=== PATIENT | male | born 1985 ===

== ENCOUNTER 2023-08-08 18:45 | Emergency (ER) | payer BC ==
[2023-08-08 20:28] LABS: BASOPHILS PERCENT AUTO 0.3 % (0.0-1.5); EOSINOPHILS ABSOLUTE AUTO 0.1 K/uL (0.0-0.7); EOSINOPHILS PERCENT AUTO 1.1 % (0.0-7.0); HEMATOCRIT 46.9 % (38.0-50.0); HEMOGLOBIN 15.9 g/dL (13.0-17.0); LYMPHOCYTES ABSOLUTE AUTO 1.1 K/uL (0.6-2.4); LYMPHOCYTES PERCENT AUTO 17.6 % (16.0-40.0); MEAN CORPUSCULAR HEMOGLOBIN 30.1 pg (27.0-32.0); MEAN CORPUSCULAR HGB CONC 33.9 g/dL (31.0-37.0); MEAN CORPUSCULAR VOLUME 88.8 fL (80.0-98.0); MONOCYTES ABSOLUTE AUTO 0.5 K/uL (0.0-0.8); MONOCYTES PERCENT AUTO 8.2 % (0.0-15.0); NEUTROPHILS ABSOLUTE AUTO 4.5 K/uL (1.4-5.7); NEUTROPHILS PERCENT AUTO 72.8 % (48.0-80.0); PLATELET COUNT,PLT 243 K/uL (150-400); RED BLOOD CELL COUNT 5.28 M/uL (4.50-5.90); WHITE BLOOD CELL COUNT,WBC 6.19 K/uL (4.0-11.0)
[2023-08-08 21:02] LABS: A/G RATIO 1.3 (0.9-1.6); ALBUMIN 4.2 g/dL (3.4-5.0); BILIRUBIN TOTAL 0.5 mg/dL (0.2-1.0); CALCIUM 9.1 mg/dL (8.5-10.1); CARBON DIOXIDE,CO2 31.1 mmol/L (21.0-32.0); EST CRCL DRUG DOSING (CG) 110.97 mL/min; PROTEIN TOTAL,TP 7.5 g/dL (6.4-8.2); TSH ULTRASENSITIVE 1.42 uIU/mL (0.36-3.74)
[2023-08-08 21:40] VITALS: BP 168/82; PULSE 70
== END 2023-08-08 21:32 | disposition home or self-care (01) ==
LOC: MW.ED 18:45
DX: R00.2 Palpitations (principal)
CPT/HCPCS: 36415; 80053; 84443; 84484; 85025; 93005; 93010; 99282; 99285